=== PATIENT | female | born 1985 | race Hispanic/Latino ===

== ENCOUNTER 2020-01-01 10:59 | Emergency (ER) | payer OTHER ==
[~2020-01-01] VITALS: Ht 157.5 cm; Wt 93.0 kg
== END 2020-01-01 12:32 | disposition home or self-care (01) ==
LOC: ER 10:59
DX: R09.81 Nasal congestion (principal); Z88.1 Allergy status to other antibiotic agents
CPT/HCPCS: 99281

== ENCOUNTER 2021-05-13 08:15 | Emergency (ER) | payer OTHER ==
[~2021-05-13] VITALS: Ht 167.6 cm; Wt 90.7 kg
[2021-05-13] MEDS ORDERED: ONDANSETRON HCL INJ 2MG/ML 2ML 2 MG/ML VIAL IV STA (08:59)
[2021-05-13] MEDS ORDERED: KETOROLAC TROMETHAMINE 30 MG/ML VIAL IV STA (08:59)
[2021-05-13] MEDS ORDERED: SODIUM CHLORIDE 0.9% 1000ML 1,000 ML IV ONE (09:00)
[2021-05-13 09:04] LABS: BASOPHILS % 0.1 % (0.0-1.0); EOSINOPHILS # (AUTO) 0.2 (0.0-0.4); EOSINOPHILS % 2.9 % (0.0-6.0); HEMOGLOBIN 12.5 g/dL (12.0-16.0); LYMPHOCYTES % 28.3 % (18.0-39.1); MEAN CORPUSCULAR HEMOGLOBIN 30.4 pg (28-32); MEAN CORPUSCULAR HGB CONC 32.9 g/dL (31-35); MEAN CORPUSCULAR VOLUME 92.5 fL (81-99); MONOCYTES # (AUTO) 0.5 (0.2-0.8); MONOCYTES % 7.7 % (4.4-11.3); NEUTROPHILS # (AUTO) 4.2 (2.1-6.9); NEUTROPHILS % 60.6 % (38.7-80.0); PLATELET COUNT 383 x10e3/uL (140-360); RED BLOOD COUNT 4.11 x10e6/uL (3.6-5.1); RED CELL DISTRIBUTION WIDTH 13.2 % (11.7-14.4)
[2021-05-13 09:10] LABS: CLARITY,URINE CLEAR (CLEAR); COLOR,URINE YELLOW (YELLOW); KETONES,URINE NEGATIVE (NEGATIVE); LEUKOCYTE ESTERASE ,URINE NEGATIVE (NEGATIVE); NITRITE,URINE NEGATIVE (NEGATIVE); PROTEIN,URINE DIPSTICK NEGATIVE (NEGATIVE); URINE UROBILINOGEN 0.2 mg/dL (0.2 - 1)
[2021-05-13 09:19] LABS: BACTERIA,URINE MODERATE /HPF; EPITHELIAL CELLS,URINE MANY /LPF; MUCUS,URINE MODERATE (RARE)
[2021-05-13 09:23] LABS: LIPASE 39 U/L (8-78)
[2021-05-13 09:25] LABS: ALANINE AMINOTRANSFERASE 17 IU/L (0-55); ALBUMIN 3.4 g/dL (3.5-5.0); ALKALINE PHOSPHATASE 62 IU/L (40-150); ANION GAP 12.8 mmol/L (8-16); BLOOD UREA NITROGEN 10 mg/dL (7-26); BUN/CREATININE RATIO 15 (6-25); CALCIUM 7.9 mg/dL (8.4-10.2); CARBON DIOXIDE 24 mmol/L (22-29); CHLORIDE 108 mmol/L (98-107); CREATININE, SERUM 0.66 mg/dL (0.57-1.11); EST GLOMERULAR FILTRATION RATE > 60 ML/MIN (60-); GLUCOSE 127 mg/dL (74-118); POTASSIUM 3.8 mmol/L (3.5-5.1); SODIUM 141 mmol/L (136-145)
[2021-05-13] MEDS ORDERED: AZITHROMYCIN 250 MG TAB PO STA (10:03)
[2021-05-13] MEDS ORDERED: CEFTRIAXONE 1 GM in SODIUM CHLORIDE 0.9% 50ML 50 ML IV ONE (10:15)
[2021-05-13] MEDS ORDERED: AZITHROMYCIN 250 MG TAB PO ONE (11:00)
== END 2021-05-13 11:29 | disposition home or self-care (01) ==
LOC: ER 09:10
DX: R10.11 Right upper quadrant pain (principal); N39.0 Urinary tract infection, site not specified; F17.210 Nicotine dependence, cigarettes, uncomplicated
CPT/HCPCS: 36415; 71046; 74176; 80053; 81001; 83690; 84702; 85025; 99284; J0696; J1885; J2405; J7030

== ENCOUNTER 2021-11-27 17:38 | Emergency (ER) | payer OTHER ==
[~2021-11-27] VITALS: Ht 167.6 cm; Wt 90.7 kg
[2021-11-27] MEDS ORDERED: AZITHROMYCIN250 MG PO (19:07)
[2021-11-27] MEDS ORDERED: PREDNISONE20 MG PO (19:07)
== END 2021-11-27 19:30 | disposition home or self-care (01) ==
LOC: ER 17:40
DX: J02.9 Acute pharyngitis, unspecified (principal)
CPT/HCPCS: 83518; 87070; 99282